=== PATIENT | female | born 1980 | race Caucasian/White ===

== ENCOUNTER → 2021-03-04 | Outpatient (CLI) | payer OTHER ==
[~2021-03-04] MED LIST: HYDR1TAB53 PO
[2021-03-04 08:31] LABS: BASOPHILS % (AUTO) 0 % (0-1); EOSINOPHILS % (AUTO) 1 % (1-7); LYMPHOCYTES % (AUTO) 16 % (22-44); MEAN CORPUSCULAR HEMOGLOBIN 29.8 pg (27.0-34.8); MEAN PLATELET VOLUME 9.9 fL (7.4-10.4); MONOCYTES % (AUTO) 4 % (2-9); NEUTROPHILS % (AUTO) 79 % (42-75); PLATELET COUNT 321 x10^3/uL (130-400); RED BLOOD COUNT 5.13 x10^6/uL (3.82-5.3); RED CELL DISTRIBUTION WIDTH 13.2 % (9.6-15.2)
[2021-03-04 08:40] LABS: ALBUMIN 3.7 g/dL (3.4-5.0); ANION GAP 7 mmol/L (5-15); CALCIUM 9.4 mg/dL (8.5-10.1); CHLORIDE 103 mmol/L (98-107); CREATININE 0.56 mg/dL (0.55-1.02)
[2021-03-04 09:08] LABS: % IRON SATURATION 29 % (20-55); ALANINE AMINOTRANSFERASE 19 U/L (12-78); ALKALINE PHOSPHATASE 103 U/L (45-117); BILIRUBIN,TOTAL 0.7 mg/dL (0.2-1.0); CHOL/HDL RATIO 6.1; CHOLESTEROL, TOTAL 242 mg/dL (140-239); HDL CHOL % 17 % (28-40); HDL CHOLESTEROL (DIRECT) 40 mg/dL (40-60); IRON LEVEL 107 mcg/dL (50-170); LDL CHOLESTEROL,CALCULATED 171 mg/dL (54-169); LDL/HDL RATIO 4.3 (0.5-3.0); PREALBUMIN 15.6 mg/dL (20.0-40.0); TOTAL IRON BINDING CAPACITY 374 mcg/dL (250-450); TOTAL PROTEIN 8.3 g/dL (6.4-8.2); TRANSFERRIN 279 mg/dL (200-360); TRIGLYCERIDES 157 mg/dL (50-200); VLDL CHOLESTEROL 31 mg/dL (0-25)
== END | disposition home or self-care (01) ==
LOC: STAR 07:44
PROVIDERS: ATTEND Thoracic Surgery (Cardiothoracic Vascular Surgery)
DX: Z01.818 Encounter for other preprocedural examination (principal); R94.31 Abnormal electrocardiogram [ECG] [EKG]; I25.2 Old myocardial infarction
CPT/HCPCS: 36415; 71046; 80053; 80061; 82306; 82607; 82728; 82746; 83540; 83550; 83970; 84134; 84425; 84466; 85025; 93005

== ENCOUNTER 2021-03-10 07:55 | Inpatient (IN) | payer OTHER ==
[~2021-03-10] VITALS: Ht 172.7 cm; Wt 138.0 kg
[~2021-03-10 07:55] MED LIST changes: +BUPIVACAINE/PF 0.5% ONE; +EPINEPHRINE 1 MG/ML, 1ML ONE
[2021-03-10] MEDS ORDERED: CHLORHEXIDINE 15 ML UDC ONE (08:46)
[2021-03-10] MEDS ORDERED: MIDAZOLAM 1 MG/ML, 2ML ONE (08:52)
[2021-03-10] MEDS ORDERED: FENTANYL PF 250 MCG/5ML ONE (08:52)
[2021-03-10] MEDS ORDERED: CHLORHEXIDINE 15 ML UDC PO ONE (09:00)
[2021-03-10] MEDS ORDERED: LACTATED RINGERS 1,000 ML IV SCH (09:00)
[2021-03-10 09:12] LABS: HCG UR SG 1.014 (1.003-1.030)
[2021-03-10] MEDS ORDERED: BUPIVACAINE/PF-EPI 0.5% 1:200K INFIL ONE (09:34)
[2021-03-10] MEDS ORDERED: DEXAMETHASONE 4 MG/ML, 5ML ONE (09:48)
[2021-03-10] MEDS ORDERED: ROCURONIUM 10MG/ML,5ML ONE (09:52)
[2021-03-10] MEDS ORDERED: PROPOFOL 10 MG/ML, 20ML ONE (09:52)
[2021-03-10] MEDS ORDERED: NEOSTIGMINE 1 MG/ML, 10ML ONE (09:52)
[2021-03-10] MEDS ORDERED: ONDANSETRON 2MG/ML, 2ML ONE (09:52)
[2021-03-10] MEDS ORDERED: CEFAZOLIN 1,000 MG ONE (09:52)
[2021-03-10] MEDS ORDERED: GLYCOPYRROLATE 0.2MG/1ML, 5ML ONE (09:52)
[2021-03-10] MEDS ORDERED: LIDOCAINE-MPF 2% ,5ML ONE (09:52)
[2021-03-10] MEDS ORDERED: ALBUTEROL SULFATE 2.5 MG/3 ML NPPB PRN (10:00)
[2021-03-10] MEDS ORDERED: MEPERIDINE/PF 25MG/0.5ML IVPush PRN (10:00)
[2021-03-10] MEDS ORDERED: OXYcodone 5 MG/5 ML ORAL.SOL UDC PO PRN (10:00)
[2021-03-10] MEDS ORDERED: LABETALOL 5MG/ML, 20ML IV PRN (10:00)
[2021-03-10] MEDS ORDERED: FENTANYL PF 100 MCG/2ML IV PRN (10:00)
[2021-03-10] MEDS ORDERED: DIAZEPAM 5 MG/ML, 2ML IVPush PRN (10:00)
[2021-03-10] MEDS ORDERED: PROMETHAZINE 25 MG/ML, 1ML IVPush PRN (10:00)
[2021-03-10] MEDS ORDERED: METHOCARBAMOL 1,000 MG in DEXTROSE 5% 100 ML IV PRN (10:00)
[2021-03-10] MEDS ORDERED: FENTANYL PF 100 MCG/2ML ONE (10:06)
[2021-03-10] MEDS ORDERED: LORazepam 2 MG/ML, 1ML ONE (10:18)
[2021-03-10] MEDS ORDERED: HYDROmorphone 2 MG/ML, 1ML ONE ×2 (10:18→11:12)
[2021-03-10] MEDS ORDERED: PROMETHAZINE 25 MG/ML, 1ML ONE (10:20)
[2021-03-10] MEDS: HYDROmorphone 1 MG/ML, 1ML INJ IVPush PRN ×6 (10:23→11:22)
[2021-03-10] MEDS: LACTATED RINGERS 1,000 ML IV SCH ×2 (10:30→17:10)
[2021-03-10] MEDS ORDERED: PROMETHAZINE 25 MG/ML, 1ML IM PRN (10:30)
[2021-03-10] MEDS ORDERED: hydrALAzine 20 MG/ML, 1ML IVPush PRN (10:30)
[2021-03-10] MEDS ORDERED: ONDANSETRON 2MG/ML, 2ML IVPush PRN (10:30)
[2021-03-10] MEDS ORDERED: PHENOL THROAT SPRAY BOTTLE MM PRN (10:30)
[2021-03-10] MEDS ORDERED: LORazepam 2 MG/ML, 1ML IVPush PRN (10:30)
[2021-03-10] MEDS ORDERED: LORazepam 2 MG/ML, 1ML IV PRN (10:30)
[2021-03-10] MEDS ORDERED: ENALAPRILAT 1.25 MG/ML, 2ML IV PRN (10:30)
[2021-03-10] MEDS ORDERED: DIPHENHYDRAMINE 50 MG/ML, 1ML IV PRN (10:30)
[2021-03-10] MEDS ORDERED: PROMETHAZINE 12.5 MG SUPP PR PRN (10:30)
[2021-03-10] MEDS: ACETAMINOPHEN 100 ML IVPB SCH ×3 (10:55→22:44)
[2021-03-10 12:00] VITALS: BP 140/97
[2021-03-10] MEDS: morphine SULFATE 10 MG/ML, 1ML IVPush PRN ×2 (13:22→16:07)
[2021-03-10] MEDS: OXYcodone 5 MG/5 ML ORAL.SOL UDC PO PRN ×2 (18:49→23:09)
[2021-03-10] MEDS: KETOROLAC 30 MG/1 ML IVPush PRN (20:22)
[2021-03-10] MEDS: FAMOTIDINE 20 MG/2 ML IVPush SCH (20:23)
[2021-03-10 20:51] VITALS: BP 126/87
[2021-03-10 23:11] VITALS: BP 136/91
[2021-03-11] MEDS: LACTATED RINGERS 1,000 ML IV SCH ×2 (00:46→08:28)
[2021-03-11 01:07] VITALS: BP 129/84
[2021-03-11 03:20] VITALS: BP 127/82
[2021-03-11] MEDS: ACETAMINOPHEN 100 ML IVPB SCH (04:30)
[2021-03-11] MEDS: OXYcodone 5 MG/5 ML ORAL.SOL UDC PO PRN ×2 (04:41→14:53)
[2021-03-11] MEDS: KETOROLAC 30 MG/1 ML IVPush PRN (04:45)
[2021-03-11 05:47] LABS: BASOPHILS % (AUTO) 0 % (0-1); EOSINOPHILS % (AUTO) 0 % (1-7); LYMPHOCYTES % (AUTO) 15 % (22-44); MEAN CORPUSCULAR HEMOGLOBIN 30.1 pg (27.0-34.8); MEAN CORPUSCULAR HGB CONC 33.7 g/dL (32.4-35.8); MEAN PLATELET VOLUME 11.1 fL (7.4-10.4); MONOCYTES % (AUTO) 5 % (2-9); NEUTROPHILS % (AUTO) 80 % (42-75); PLATELET COUNT 280 x10^3/uL (130-400); RED BLOOD COUNT 4.35 x10^6/uL (3.82-5.3); RED CELL DISTRIBUTION WIDTH 13.2 % (9.6-15.2)
[2021-03-11 06:03] LABS: CHLORIDE 107 mmol/L (98-107)
[2021-03-11 06:10] LABS: ALBUMIN 2.9 g/dL (3.4-5.0); ANION GAP 5 mmol/L (5-15); CALCIUM 8.5 mg/dL (8.5-10.1); CREATININE 0.42 mg/dL (0.55-1.02)
[2021-03-11 08:21] VITALS: BP 131/92
[2021-03-11 08:22] VITALS: BP_SYST 131; BP_SYST 96; BP_DIAS 65; BP_DIAS 92
[2021-03-11] MEDS: FAMOTIDINE 20 MG/2 ML IVPush SCH (08:28)
[2021-03-11] MEDS ORDERED: ENOXAPARIN 40 MG/0.4 ML SQ SCH (09:00)
[2021-03-11 13:07] VITALS: BP 139/96
== END 2021-03-11 15:53 | disposition home or self-care (01) | DRG 619 ==
LOC: ORIP 08:07 → 4NE 11:49
PROVIDERS: ADMIT Thoracic Surgery (Cardiothoracic Vascular Surgery); ATTEND Thoracic Surgery (Cardiothoracic Vascular Surgery)
PROC: 0DB64Z3 Excision of Stomach, Percutaneous Endoscopic Approach, Vertical (ICD-10-PCS; principal; 2021-03-10 10:00)
DX: E66.01 Morbid (severe) obesity due to excess calories (principal); E43 Unspecified severe protein-calorie malnutrition; Z68.42 Body mass index [BMI] 45.0-49.9, adult; G89.29 Other chronic pain; I10 Essential (primary) hypertension
CPT/HCPCS: 36415; J3490; S0020; 80048; 81025; 82040; 85025; G0378; J0131; J0171; J0690; J1100; J1170; J1650; J1885; J2250; J2405; J2704; J2710; J3010; J2060; J2270; J2800; J7120